=== PATIENT | female | born 1945 | race Two or more races ===

== ENCOUNTER 2019-06-17 21:00 | Inpatient (IN) | payer MEDICARE, BC ==
[~2019-06-17] VITALS: Ht 162.6 cm; Wt 61.2 kg
[~2019-06-17 21:00] MED LIST: DONE10TA40 PO; MEM5T PO; SIMV-8 PO
[2019-06-17 22:24] LABS: Basophils # (auto) 0 uL; Basophils % (auto) 0.3 % (0.0-2.0); Eosinophils # (auto) 0.1 uL; Eosinophils % (auto) 1.1 % (0.0-7.0); Hematocrit 40.8 % (36.0-46.0); Hemoglobin 13.3 g/dL (12.2-16.2); Lymphocytes # (auto) 0.7 uL; Lymphocytes % (auto) 13.2 % (10.0-50.0); Mean Corpuscular Hemoglobin 29.2 pg (28.0-32.0); Mean Corpuscular Hgb Conc. 32.7 g/dL (32.0-36.0); Mean Corpuscular Volume 89.4 fL (80.0-100.0); Monocytes # (auto) 0.5 uL; Monocytes % (auto) 9.4 % (0.0-12.0); Neutrophils # (auto) 3.8 uL; Nucleated Red Blood Cells % 0.1 %; Platelet Count (auto) 174 10^3/uL (140-450); Red Blood Cells 4.56 10^6/uL (4.0-5.20); Red Cell Distribution Width 17.2 % (11.8-14.3)
[2019-06-17 22:45] LABS: Albumin 3.1 g/dL (3.4-5.0); Anion Gap 6 (5-15); Blood Urea Nitrogen 22 mg/dL (7-18); Calcium 9.3 mg/dL (8.5-10.1); Carbon Dioxide 26 mmol/L (21-32); Chloride 108 mmol/L (98-107); Glucose 92 mg/dL (74-106); Potassium 4.3 mmol/L (3.5-5.1); Sodium 140 mmol/L (136-145)
[2019-06-17 22:51] LABS: Alanine Aminotransferase 109 U/L (13-56); Alkaline Phosphatase 187 U/L (45-117); Aspartate Aminotransferase 104 U/L (15-37); BUN/Creatinine Ratio 14.8; Bilirubin, Total 0.5 mg/dL (0.2-1.0); GFR African American 44 mL/min; GFR Non-African American 36 mL/min; Total Protein 7.3 g/dL (6.4-8.2)
[2019-06-18 01:13] LABS: Lactic Acid w/Reflex 2.1 mmol/L (0.4-2.0)
[2019-06-18 01:46] LABS: Urine Bacteria FEW /hpf (None Seen); Urine Blood Negative /uL (Negative); Urine Hyaline Cast FEW /lpf (0 - 2); Urine Mucus FEW (None Seen); Urine Specific Gravity 1.005 (1.001-1.035); Urine WBC 3 /hpf (0 - 5); Urine WBC Clumps PRESENT /hpf (None Seen)
[2019-06-18 01:56] LABS: Alcohol, Urine < 3.0 mg/dL (0-5); Amphetamine Screen, Urine NEGATIVE (NEGATIVE); Barbiturate Scree,Urine NEGATIVE (NEGATIVE); Benzodiazephine Screen, Urine NEGATIVE (NEGATIVE); Cannabinoid Screen, Urine NEGATIVE (NEGATIVE); Cocaine Screen, Urine NEGATIVE (NEGATIVE); Opiate Scree,Urine NEGATIVE (NEGATIVE); Phencyclidine Screen, Urine NEGATIVE (NEGATIVE)
[2019-06-18] MEDS ORDERED: cefTRIAXone 1GM/50ML D5W 50 ML IV ONE (02:30)
[2019-06-18] MEDS ORDERED: LORazepam 2MG/ML-1ML VIAL IV PRN ×2 (02:45→08:15)
[2019-06-18] MEDS ORDERED: TEMAZEPAM 15 MG CAP PO PRN (02:45)
[2019-06-18] MEDS ORDERED: ONDANSETRON HCL 4 MG/2 ML VIAL IV PRN (02:45)
[2019-06-18] MEDS ORDERED: ACETAMINOPHEN 325 MG TAB PO PRN (02:45)
[2019-06-18] MEDS ORDERED: SODIUM CHLORIDE 0.9% 500 ML IV ONE (02:45)
[2019-06-18] MEDS: SODIUM CHLORIDE 0.9% 1,000 ML IV SCH ×2 (04:30→15:51)
[2019-06-18] MEDS ORDERED: HALOPERIDOL LACTATE 5 MG/ML INJ VIAL IM PRN (08:15)
[2019-06-18 09:16] LABS: Folate (Folic Acid) 4.28 ng/mL (5.38-24)
[2019-06-18] MEDS ORDERED: MEMANTINE HCL 5 MG TAB PO SCH (10:00)
[2019-06-18] MEDS: PANTOPRAZOLE 40 MG TAB PO SCH (10:47)
[2019-06-18] MEDS: cefTRIAXone 1GM/50ML D5W 50 ML IV SCH (10:48)
--- NOTE | 2019-06-18 14:00 | NUR ---
[facility] admit from [facility] admitted to [facility], NO SBAR received. Patient is awake and alert only to self. Patient is aphasic and is unable to answer questions for admission. Received all information from the chart and from the Caregiver, Agata, over the telephone. Updated patient on POC and instructed patient to call for assistance as needed, patient was unable to verbalize understanding. Bed locked in lowest position, side rails up x2, call light within reach, bed alarm on. Seizure and fall precautions in place. Will continue to monitor q1hr and PRN.
[2019-06-18 14:15] VITALS: BP 126/80
--- NOTE | 2019-06-18 15:49 | NUR ---
Home Meds Per Caregiver, Agata, patient does not take any home medications.
[2019-06-18 16:21] VITALS: BP 121/77
--- NOTE | 2019-06-18 17:00 | NUR ---
Patient Rounds Patient appears to be sleeping, resting with eyes closed. No S/S of distress or SOB.
--- NOTE | 2019-06-18 18:43 | NUR ---
Patient Rounds Caregiver at bedside, feeding patient dinner. No S/S of distress or SOB, no pain noted or reported at this time. Will endorse care to night warehouse manager RN.
--- NOTE | 2019-06-18 19:30 | NUR ---
Opening Shift Note Assumed care of patient, awake and alert x1. No S/S of distress/SOB or pain. Instructed on POC and to call for assist PRN. Bed in lowest locked position, call light within reach, side rails up x2, fall precautions in place. Will continue to monitor for changes Q1hr and PRN.
[2019-06-18 22:00] VITALS: BP 121/70
[2019-06-18] MEDS ORDERED: DONEPEZIL HYDROCHLORIDE 5 MG TAB PO SCH (22:00)
[2019-06-19 04:57] LABS: Basophils # (auto) 0 uL; Basophils % (auto) 0.6 % (0.0-2.0); Eosinophils # (auto) 0.1 uL; Eosinophils % (auto) 2.1 % (0.0-7.0); Hematocrit 34.8 % (36.0-46.0); Hemoglobin 11.4 g/dL (12.2-16.2); Lymphocytes # (auto) 1.1 uL; Lymphocytes % (auto) 23.2 % (10.0-50.0); Mean Corpuscular Hemoglobin 29.1 pg (28.0-32.0); Mean Corpuscular Hgb Conc. 32.7 g/dL (32.0-36.0); Mean Corpuscular Volume 88.9 fL (80.0-100.0); Monocytes # (auto) 0.6 uL; Monocytes % (auto) 11.8 % (0.0-12.0); Neutrophils # (auto) 2.9 uL; Neutrophils % (auto) 62.3 % (37.0-80.0); Nucleated Red Blood Cells % 0.1 %; Platelet Count (auto) 173 10^3/uL (140-450); Red Blood Cells 3.91 10^6/uL (4.0-5.20); Red Cell Distribution Width 17.2 % (11.8-14.3); White Blood Cell 4.7 10^3/uL (4.4-10.8)
[2019-06-19 05:00] VITALS: BP 121/80
--- NOTE | 2019-06-19 05:10 | NUR ---
Rounds While rounding on patient, noticed patient had pulled out IV. Catheter intact, pressure dressing applied.
[2019-06-19 05:20] LABS: BUN/Creatinine Ratio 11.6; Calcium 8.3 mg/dL (8.5-10.1); Potassium 4.2 mmol/L (3.5-5.1)
[2019-06-19] MEDS: SODIUM CHLORIDE 0.9% 1,000 ML IV SCH (05:25)
--- NOTE | 2019-06-19 05:30 | NUR ---
IV insertion IV access obtained, via clean sterile technique by inserting 22 gauge catheter at right forearm after 2 attempt(s). IV secured properly. No trauma to site. Patient tolerated procedure well.
--- NOTE | 2019-06-19 07:05 | NUR ---
Opening Shift Note Assumed care of patient, awake and alert x1. No S/S of distress/SOB or pain. Updated on POC and instructed to call for assistance as needed. Bed in lowest locked position, call light within reach, side rails up x2, seizure and fall precautions in place. Sitter at bedside for safety. Will continue to monitor for changes Q1hr and PRN.
[2019-06-19 09:00] VITALS: BP 147/97
[2019-06-19] MEDS: cefTRIAXone 1GM/50ML D5W 50 ML IV SCH (09:00)
[2019-06-19] MEDS: FOLIC ACID 1 MG in D5W 5% 50 ML IV SCH (10:00)
[2019-06-19] MEDS: PANTOPRAZOLE 40 MG TAB PO SCH (11:28)
[2019-06-19 13:00] VITALS: BP 123/70
--- NOTE | 2019-06-19 13:50 | NUR ---
EEG COMPLETED AT BEDSIDE. NATHAN ANTOINE.
[2019-06-19 17:00] VITALS: BP 148/98
--- NOTE | 2019-06-19 19:10 | NUR ---
Patient Rounds Caregiver and sitter at bedside, patient sitting up in bed eating dinner. No S/S of distress or SOB, no pain noted or reported at this time. Will endorse care to maintenance technician 2nd shift RN.
--- NOTE | 2019-06-19 19:20 | NUR ---
Opening Shift Note Assumed care of patient, awake and alert to name. No S/S of distress/SOB or pain. Instructed on POC and to call for assist PRN. Bed in lowest locked position, call light within reach, side rails up x2, fall precautions in place, sitter at bedside for safety. Will continue to monitor for changes Q1hr and PRN.
[2019-06-20] MEDS: SODIUM CHLORIDE 0.9% 1,000 ML IV SCH ×3 (01:33→21:19)
[2019-06-20 07:07] LABS: Chloride 111 mmol/L (98-107); Potassium 4.2 mmol/L (3.5-5.1); Sodium 137 mmol/L (136-145)
[2019-06-20 07:12] LABS: Alanine Aminotransferase 75 U/L (13-56); Albumin 2.1 g/dL (3.4-5.0); Anion Gap 9 (5-15); Aspartate Aminotransferase 68 U/L (15-37); BUN/Creatinine Ratio 11.2; Blood Urea Nitrogen 14 mg/dL (7-18); Calcium 8.5 mg/dL (8.5-10.1); Carbon Dioxide 17 mmol/L (21-32); GFR African American 54 mL/min; GFR Non-African American 45 mL/min; Glucose 63 mg/dL (74-106)
[2019-06-20 07:15] LABS: Alkaline Phosphatase 174 U/L (45-117); Bilirubin, Total 0.7 mg/dL (0.2-1.0); Total Protein 6.9 g/dL (6.4-8.2)
[2019-06-20 07:25] LABS: Basophils # (auto) 0 uL; Basophils % (auto) 0.5 % (0.0-2.0); Eosinophils # (auto) 0.1 uL; Eosinophils % (auto) 1.8 % (0.0-7.0); Hematocrit 41.2 % (36.0-46.0); Hemoglobin 13.1 g/dL (12.2-16.2); Lymphocytes # (auto) 1.1 uL; Lymphocytes % (auto) 21.2 % (10.0-50.0); Mean Corpuscular Hemoglobin 28.8 pg (28.0-32.0); Mean Corpuscular Hgb Conc. 31.7 g/dL (32.0-36.0); Mean Corpuscular Volume 90.9 fL (80.0-100.0); Monocytes # (auto) 0.6 uL; Monocytes % (auto) 12.1 % (0.0-12.0); Neutrophils # (auto) 3.4 uL; Neutrophils % (auto) 64.4 % (37.0-80.0); Nucleated Red Blood Cells % 0.1 %; Platelet Count (auto) 140 10^3/uL (140-450); Red Blood Cells 4.54 10^6/uL (4.0-5.20); Red Cell Distribution Width 17.9 % (11.8-14.3); White Blood Cell 5.3 10^3/uL (4.4-10.8)
[2019-06-20 09:00] VITALS: BP 134/84
--- NOTE | 2019-06-20 09:40 | NUR ---
TRANSFER PATIENT TRANSFERRED TO ROOM 295B. SBAR GIVEN TO NATHAN MCCRARY. ALL QUESTIONS/CONCERNS ANSWERED.
--- NOTE | 2019-06-20 09:41 | NUR ---
Received patient Patient transferred from central to room 295B. Patient is awake, and alert to self only at this time. Patient is on room air, respirations even and unlabored. Sitter at bedside for safety. Reviewed plan of care with patient, patient unable to verbalized understanding. Bed in low and locked position, call light within reach. Will continue to monitor Q1 hour and PRN.
[2019-06-20] MEDS: PANTOPRAZOLE 40 MG TAB PO SCH (10:32)
[2019-06-20] MEDS: cefTRIAXone 1GM/50ML D5W 50 ML IV SCH (10:32)
--- NOTE | 2019-06-20 11:25 | NUR ---
Dr. Ponce at bedside Reviewing plan of care. No new orders received. Will continue to monitor Q1 hour and PRN.
[2019-06-20 13:00] VITALS: BP 139/89
[2019-06-20] MEDS: FOLIC ACID 1 MG in D5W 5% 50 ML IV SCH (13:25)
--- NOTE | 2019-06-20 13:29 | NUR ---
PATIENT AMBULATED PATIENT AMBULATED WITH PHYSICAL THERAPY TO NURSES STATION USING WALKER AND ACCOMPANIED BY PT X2. Signed: 06/20/19 at 1451 by KARY BROWN <Co-Signature Required> Co-Signed: 06/20/19 at 1451 by HERMANN TREJO RN RN
--- NOTE | 2019-06-20 15:00 | NUR ---
Pt is able to follow commands however, pt is verbal to self. When patient is asked several questions, patient cannot provide a response. Per nurse, patient is ambulatory within her home. Addendum: 06/20/19 at 1502 by Rachael Ellis PT Amended: Links added.
[2019-06-20 17:00] VITALS: BP 127/74
--- NOTE | 2019-06-20 18:30 | NUR ---
Rounds Patient awake sitting up in bed. Sitter at bedside for safety. Will continue to monitor Q1 hour and PRN.
--- NOTE | 2019-06-20 19:30 | NUR ---
Opening Shift Note Assumed care of patient, awake and alert x1. No S/S of distress/SOB or pain. Instructed on POC and to call for assist PRN, will continue to monitor for changes Q1hr and PRN.Sitter at bedside.
--- NOTE | 2019-06-20 19:33 | NUR ---
Closing Note Report given to shift leader RN. No signs or symptoms of distress noted at this time. Sitter at bedside for safety.
[2019-06-20 20:00] VITALS: BP 123/74
[2019-06-20 22:00] VITALS: BP 123/74
[2019-06-21 05:00] VITALS: BP 128/85
[2019-06-21 06:05] LABS: Basophils # (auto) 0 uL; Basophils % (auto) 0.5 % (0.0-2.0); Eosinophils # (auto) 0.2 uL; Eosinophils % (auto) 3.9 % (0.0-7.0); Hematocrit 36.9 % (36.0-46.0); Hemoglobin 12.1 g/dL (12.2-16.2); Lymphocytes # (auto) 1.1 uL; Lymphocytes % (auto) 24.7 % (10.0-50.0); Mean Corpuscular Hemoglobin 29.2 pg (28.0-32.0); Mean Corpuscular Hgb Conc. 32.7 g/dL (32.0-36.0); Mean Corpuscular Volume 89.2 fL (80.0-100.0); Monocytes # (auto) 0.5 uL; Neutrophils # (auto) 2.8 uL; Neutrophils % (auto) 60.9 % (37.0-80.0); Nucleated Red Blood Cells % 0.1 %; Platelet Count (auto) 176 10^3/uL (140-450); Red Blood Cells 4.14 10^6/uL (4.0-5.20); Red Cell Distribution Width 17.5 % (11.8-14.3); White Blood Cell 4.6 10^3/uL (4.4-10.8)
[2019-06-21 06:18] LABS: BUN/Creatinine Ratio 10.3; Calcium 8.4 mg/dL (8.5-10.1)
--- NOTE | 2019-06-21 07:25 | NUR ---
Opening Note Received report from second shift supervisor RN. Patient is resting in bed, respirations even and unlabored. No signs or symptoms of distress noted at this time. Bed in low and locked position, call light within reach. Will continue to monitor Q1 hour and PRN. Sitter at bedside for safety.
[2019-06-21 09:00] VITALS: BP 123/78
[2019-06-21] MEDS: cefTRIAXone 1GM/50ML D5W 50 ML IV SCH (09:23)
[2019-06-21] MEDS: SODIUM CHLORIDE 0.9% 1,000 ML IV SCH (09:23)
[2019-06-21] MEDS: PANTOPRAZOLE 40 MG TAB PO SCH (09:23)
[2019-06-21] MEDS: FOLIC ACID 1 MG in D5W 5% 50 ML IV SCH (10:00)
--- NOTE | 2019-06-21 10:05 | NUR ---
Patient ambulated Patient ambulated around unit with PT and front wheel walker. Patient assisted back to bed. Patient tolerated well. Will continue to monitor Q1 hour and PRN.
--- NOTE | 2019-06-21 12:09 | NUR ---
Rounds Patient sitting up in chair at bedside eating lunch. Sitter at bedside for safety. Will continue to monitor Q1 hour and PRN.
[2019-06-21 13:00] VITALS: BP 102/66
--- NOTE | 2019-06-21 16:17 | NUR ---
Dr. Chawla at bedside Reviewing plan of care with patient, No new orders received. Will continue to monitor Q1 hour and PRN. Sitter at bedside for safety.
[2019-06-21 17:00] VITALS: BP 124/74
[2019-06-21] MEDS: Ensure HIGH Protein Chocolate 8oz Bottle PO SCH (18:00)
--- NOTE | 2019-06-21 19:03 | NUR ---
Closing Note Report given to security shift supervisor RN. No signs or symptoms of distress noted at this time. Sitter at bedside for safety.
--- NOTE | 2019-06-21 19:55 | NUR ---
Opening Shift Note Assumed care of patient, awake and alert. No S/S of distress/SOB or pain. Instructed on POC and to call for assist PRN, will continue to monitor for changes Q1hr and PRN. Sitter at bedside.
[2019-06-21 20:00] VITALS: BP 116/74
[2019-06-21 22:00] VITALS: BP 116/74
[2019-06-22] MEDS: SODIUM CHLORIDE 0.9% 1,000 ML IV SCH ×2 (00:05→13:25)
[2019-06-22 05:00] VITALS: BP 128/74
[2019-06-22 06:33] LABS: Basophils # (auto) 0 uL; Basophils % (auto) 0.6 % (0.0-2.0); Eosinophils # (auto) 0.1 uL; Eosinophils % (auto) 2.1 % (0.0-7.0); Hematocrit 38.2 % (36.0-46.0); Hemoglobin 12.6 g/dL (12.2-16.2); Lymphocytes # (auto) 1.1 uL; Lymphocytes % (auto) 20.5 % (10.0-50.0); Mean Corpuscular Hemoglobin 29.4 pg (28.0-32.0); Monocytes # (auto) 0.4 uL; Monocytes % (auto) 7.3 % (0.0-12.0); Neutrophils # (auto) 3.9 uL; Neutrophils % (auto) 69.5 % (37.0-80.0); Nucleated Red Blood Cells % 0.1 %; Platelet Count (auto) 213 10^3/uL (140-450); Red Blood Cells 4.29 10^6/uL (4.0-5.20); Red Cell Distribution Width 17.2 % (11.8-14.3); White Blood Cell 5.6 10^3/uL (4.4-10.8)
[2019-06-22 07:02] LABS: Calcium 8.2 mg/dL (8.5-10.1); Potassium 4.3 mmol/L (3.5-5.1)
[2019-06-22 07:04] LABS: BUN/Creatinine Ratio 13.7
--- NOTE | 2019-06-22 08:00 | NUR ---
Morning note patient resting in bed with even and unlabored respirations, no distress noted. Instructed patient on POC, fall precautions and to call for assistance as needed. Patient unable to comprehend. Patient A&Ox self. Fall precautions in place with bed in lowest locked position with call light within reach. Sitter at bedside for safety. Will continue to monitor q1hr & PRN.
[2019-06-22 08:30] VITALS: BP 115/64
[2019-06-22] MEDS: Ensure HIGH Protein Chocolate 8oz Bottle PO SCH ×3 (08:30→18:00)
[2019-06-22 08:47] LABS: Folate (Folic Acid) 5.73 ng/mL (5.38-24)
[2019-06-22] MEDS: cefTRIAXone 1GM/50ML D5W 50 ML IV SCH (10:27)
[2019-06-22] MEDS: PANTOPRAZOLE 40 MG TAB PO SCH (10:28)
--- NOTE | 2019-06-22 11:58 | NUR ---
Nutrition Assessment Notes please see attached link for complete assessment Est. Needs based on BW (62 kg): 4767-6885 kcal (25-30 kcal/kgBW), 62-68 gms pro (1.0-1.1 gms/kgBW r/t elev RFT severe hypoalb). Will continue to monitor pertinent labs and reassess nutrient need prn Addendum: 06/22/19 at [address] Amended: Links added.
--- NOTE | 2019-06-22 11:58 | NUR ---
Patient sitting in chair at bedside. Sitter at bedside for safety.
[2019-06-22] MEDS: FOLIC ACID 1 MG in D5W 5% 50 ML IV SCH (12:30)
--- NOTE | 2019-06-22 12:51 | NUR ---
was at bedside - Dr. Mann
--- NOTE | 2019-06-22 17:08 | NUR ---
Called next of kin - Agata This RN called Agata, next of kin/caregiver, to notify of the need to transport patient home. Voicemail left.
[2019-06-22 17:27] VITALS: BP 122/74
--- NOTE | 2019-06-22 17:58 | NUR ---
Called Agata, next of kin/caregiver Called Agata (second time) at [phone] to inform Agata of the need to transport patient home. Voicemail left.
--- NOTE | 2019-06-22 18:00 | NUR ---
Paged on-call mental health social worker RE: active social worker clinical order Paged Ameena, on-call mental health social worker, to clarify if order has been completed for discharge. Social service note not present at this time.
--- NOTE | 2019-06-22 18:30 | NUR ---
Agata returned this RN's phone call Agata stated "I had dental work done today and I don't know what happened but my mouth is numb and I have just been passed out." Informed Agata of patient's active discharge order and active non emergency services ambulance driver consult. Agata denies speaking to a early childhood education worker.
--- NOTE | 2019-06-22 18:31 | NUR ---
Paged on-call hospitalist RE: discharge Paged Sivan Young..
--- NOTE | 2019-06-22 18:35 | NUR ---
Updated Hector, N.P., RE: Discharge Updated Hector of Agata's statement and active social service worker order. Order received and read back to verify.
--- NOTE | 2019-06-22 18:40 | NUR ---
Updated Agata, next of kin, RE: discharge Contacted Agata, next of kin/caregiver, to update on discharge postponed to 06/23/19 and informed Agata to be at bedside early tomorrow morning to transport patient home. Agata verbalized understanding.
--- NOTE | 2019-06-22 18:51 | NUR ---
Closing note Patient resting in bed with even and unlabored respirations, no distress noted. Fall precautions in place with call light within reach. Sitter at bedside for safety.
--- NOTE | 2019-06-22 19:15 | NUR ---
Care endorsed to NATHAN Govea.
--- NOTE | 2019-06-22 19:40 | NUR ---
Opening Shift Note Assumed care of patient, asleep at this time, sitter at bedside. No S/S of distress/SOB or pain. Bed in lowest position, call light within reach, siderails up x3, will continue to monitor
[2019-06-22 22:00] VITALS: BP 128/92
--- NOTE | 2019-06-22 22:05 | NUR ---
Patient awake at this time, oriented to self only, cooperative to care and follows command. Maintained sitter at bedside, will continue to monitor
[2019-06-23] MEDS: SODIUM CHLORIDE 0.9% 1,000 ML IV SCH (02:45)
[2019-06-23 05:02] VITALS: BP 121/71
[2019-06-23] MEDS: Ensure HIGH Protein Chocolate 8oz Bottle PO SCH ×2 (08:30→12:00)
--- NOTE | 2019-06-23 08:55 | NUR ---
Called elementary school social worker RE: consult Voicemail left for Brenda.
[2019-06-23] MEDS: cefTRIAXone 1GM/50ML D5W 50 ML IV SCH ×2 (09:00→12:18)
--- NOTE | 2019-06-23 09:12 | NUR ---
Called geriatric social work professor RE: consult Spoke with RALPH Vergara. RALPH Jauregui, needs to assess patient per Ursula.
--- NOTE | 2019-06-23 09:34 | NUR ---
assessment Patient is a 73 year old female who is confused. I went to bedside yesterday around 3pm and no family or caregiver at bedside. I called patients caregiver Agata at [phone] and left a message for her to return my call. I have a consult for dc planning. Waiting director of physical education back now. Addendum: 06/23/19 at 0938 by Brenda VILLEGAS Amended: Links added.
[2019-06-23] MEDS: PANTOPRAZOLE 40 MG TAB PO SCH (10:00)
[2019-06-23] MEDS: FOLIC ACID 1 MG in D5W 5% 50 ML IV SCH (10:00)
--- NOTE | 2019-06-23 10:00 | NUR ---
No visitors at bedside
--- NOTE | 2019-06-23 11:03 | NUR ---
Contacted Agata, next of kin/caregiver Agata stated "I'm so sorry. I took that medication from the dentist and it just knocked me out. I over slept and just woke up. I got that phone call from Tana and I was waiting for her to call me back." Instructed Agata that patient has discharge order and that she needs to come to bedside to transport patient home and she can speak with the social research assistant at that time. Agata verbalized understanding and will come to bedside.
--- NOTE | 2019-06-23 12:13 | NUR ---
was at bedside - Dr. Mann
--- NOTE | 2019-06-23 12:17 | NUR ---
No visitors at bedside
--- NOTE | 2019-06-23 12:19 | NUR ---
Agata arrived to bedside Will proceed with discharge per MD order.
--- NOTE | 2019-06-23 12:30 | NUR ---
Discharge Discharge education and paperwork provided to the patient and Agata (caregiver). Patient unable to comprehend information. Patient A&Ox self. Agata verbalized understanding to information. Dr. Ponce's business card given to Agata. Instructed Agata to call Dr. Ponce's office to schedule an appointment if the patient has another seizure per Dr. Ponce. Agata verbalized understanding. Instructed Agata to collect all personal belongings. Agata verbalized understanding. Respirations even and unlabored, no distress noted. Patient to finish eating the lunch meal and then be transported to private vehicle.
--- NOTE | 2019-06-23 13:06 | NUR ---
IV removed with clean technique, catheter intact. Dressing applied. Patient tolerated well, no trauma to site.
--- NOTE | 2019-06-23 13:29 | NUR ---
Patient taken to private vehicle via wheelchair by staff member. Agata at patient's side. Agata reports having all of patient's personal belongings. Respirations even and unlabored, no distress noted.
== END 2019-06-23 13:29 | disposition home or self-care (01) | DRG 871 ==
LOC: EDBD 21:00 → ER 21:00 → OVERFLOW 21:01 → CENTRAL 06-18 13:27 → WEST WING 06-20 09:40
PROVIDERS: ADMIT Nurse Practitioner; ATTEND Internal Medicine
DX: A41.51 Sepsis due to Escherichia coli [E. coli] (principal); N17.0 Acute kidney failure with tubular necrosis; N39.0 Urinary tract infection, site not specified; E44.0 Moderate protein-calorie malnutrition; R47.01 Aphasia; G40.409 Other generalized epilepsy and epileptic syndromes, not intractable, without status epilepticus; G30.9 Alzheimer's disease, unspecified; M47.816 Spondylosis without myelopathy or radiculopathy, lumbar region; R32 Unspecified urinary incontinence; N18.3 Chronic kidney disease, stage 3 (moderate); Z68.23 Body mass index [BMI] 23.0-23.9, adult; I12.9 Hypertensive chronic kidney disease with stage 1 through stage 4 chronic kidney disease, or unspecified chronic kidney disease
CPT/HCPCS: 36415; 70450; 71250; 72125; 74176; 80048; 80053; 80307; 81001; 82140; 82607; 82746; 83605; 84443; 84484; 85025; 87040; 87086; 87186; 95819; 96361; 96365; 97116; 97530; G0378; J0696; J7060

== ENCOUNTER 2019-08-02 20:46 | Emergency (ER) | payer BC, MEDICARE ==
[~2019-08-02] VITALS: Ht 170.2 cm; Wt 68.0 kg
[2019-08-02 23:05] LABS: Basophils # (auto) 0 uL; Basophils % (auto) 0.5 % (0.0-2.0); Eosinophils # (auto) 0 uL; Eosinophils % (auto) 0.4 % (0.0-7.0); Hematocrit 38.2 % (36.0-46.0); Hemoglobin 12.3 g/dL (12.2-16.2); Lymphocytes # (auto) 0.8 uL; Lymphocytes % (auto) 7.5 % (10.0-50.0); Mean Corpuscular Hemoglobin 30.4 pg (28.0-32.0); Mean Corpuscular Hgb Conc. 32.3 g/dL (32.0-36.0); Mean Corpuscular Volume 94.2 fL (80.0-100.0); Monocytes # (auto) 0.9 uL; Neutrophils # (auto) 9.1 uL; Neutrophils % (auto) 83.6 % (37.0-80.0); Platelet Count (auto) 323 10^3/uL (140-450); Red Blood Cells 4.06 10^6/uL (4.0-5.20); Red Cell Distribution Width 19.4 % (11.8-14.3); White Blood Cell 10.9 10^3/uL (4.4-10.8)
[2019-08-02 23:22] LABS: Albumin 3.2 g/dL (3.4-5.0); Anion Gap 8 (5-15); Blood Urea Nitrogen 26 mg/dL (7-18); Calcium 8.9 mg/dL (8.5-10.1); Carbon Dioxide 23 mmol/L (21-32); Chloride 107 mmol/L (98-107); Glucose 94 mg/dL (74-106); Potassium 4.3 mmol/L (3.5-5.1); Sodium 138 mmol/L (136-145)
[2019-08-02 23:25] LABS: Alanine Aminotransferase 59 U/L (13-56); Aspartate Aminotransferase 70 U/L (15-37); BUN/Creatinine Ratio 19.3; GFR African American 49 mL/min; GFR Non-African American 41 mL/min
[2019-08-02 23:30] LABS: Alkaline Phosphatase 148 U/L (45-117); Bilirubin, Total 0.3 mg/dL (0.2-1.0); Total Protein 7.4 g/dL (6.4-8.2)
[2019-08-03 03:55] LABS: Urine Bacteria None Seen /hpf (None Seen); Urine WBC None Seen /hpf (0 - 5)
[2019-08-03 04:26] LABS: Urine Blood Normal /uL (Negative); Urine Specific Gravity 1.023 (1.001-1.035)
[2019-08-03 07:15] VITALS: BP 128/72
== END 2019-08-03 08:05 | disposition home or self-care (01) ==
LOC: ER 20:55
DX: F03.90 Unspecified dementia, unspecified severity, without behavioral disturbance, psychotic disturbance, mood disturbance, and anxiety (principal); E78.5 Hyperlipidemia, unspecified
CPT/HCPCS: 36415; 70450; 71045; 74176; 80053; 81001; 83605; 84484; 85025; 93005